=== PATIENT | female | born 1950 | race Caucasian/White ===

== ENCOUNTER 2018-08-03 09:28 | Observation (INO) ==
--- NOTE | 2018-08-03 09:56 | Diag Imaging Result Doc PS360 ---
EXAM: CHEST-PORTABLE HISTORY: AMS TECHNIQUE: Chest single view COMPARISON: 11/15/2013 FINDINGS: The lungs are hyperexpanded. The heart is not enlarged. The vessels are not distended. There are no infiltrates. No effusion identified. There has been surgery to the lower neck. IMPRESSION: Negative exam. Electronically signed by Kyrie Johnson 08/03/2018 9:54 AM
--- NOTE | 2018-08-03 10:04 | PROVIDER DOCUMENTATION ---
HPI-Neurological Disorder - General Chief Complaint: Altered Mental Status Stated Complaint: DIZZY Time Seen by Provider: 08/03/18 09:50 Source: patient, family () Allergies/Adverse Reactions: Patient Allergies Allergy/AdvReac Type Severity Reaction Status Date / Time morphine Allergy Intermediate NAUSEA/VOMI Verified 08/03/18 10:23 TING Home Medications: Home Medication List Medication Instructions Recorded Confirmed Last Taken Type Alprazolam [Xanax] 0.5 mg PO QHS 10/25/11 08/03/18 02/02/18 History Cyclobenzaprine [Flexeril] 10 mg PO BID PRN 10/25/11 08/03/18 02/02/18 History Levothyroxine [Synthroid] 100 microgm PO DAILY 10/25/11 08/03/18 02/02/18 History Albuterol Sulfate Inhaler 2 puff INH [id number] 02/02/18 08/03/18 02/02/18 History [Ventolin Hfa] Aspirin [Aspir-Low] 81 mg PO QAM 02/02/18 08/03/18 02/02/18 History Umeclidinium [place] Inhaler 1 puff INH DAILY 02/02/18 08/03/18 02/02/18 History [Incruse Ellipta] Hydrocodone/APAP 10 mg/325 mg 1 each PO Q4H PRN PRN 15 Days #30 02/05/18 08/03/18 Unknown Rx [[place]-10] tablet Amlodipine [Norvasc] 1 tab PO DAILY 08/03/18 08/03/18 Unknown History Cholecalciferol (Vitamin D3) 1 cap PO DAILY 08/03/18 08/03/18 Unknown History [Vitamin D3] Diphenoxylate/Atropine [Lomotil] 1 tab PO Q6H PRN 08/03/18 08/03/18 Unknown History Irbesartan [Avapro] 1 tab PO DAILY 08/03/18 08/03/18 Unknown History Lansoprazole 1 cap PO DAILY 08/03/18 08/03/18 Unknown History Metoprolol Succinate 0.5 - 1 tab PO BID 08/03/18 08/03/18 Unknown History Nitroglycerin Sl [Nitroglycerin] 1 tab PO PRN PRN 08/03/18 08/03/18 Unknown History Promethazine [Phenergan] 1 tab PO Q4H PRN 08/03/18 08/03/18 Unknown History - History of Present Illness-Neuro Nature of Presenting Problem: Patient is a 68yo F, accompanied by , who presents for dizziness. Patient's reports when she came home from work yesterday, she began "talking off the wall" and "her short term memory is gone." Patient denies any complaints other than mild dizziness, that has improved since yesterday. Reports the dizziness does not change with positions and she denies nausea/vomiting. Patient's reports patient is not acting like herself and "can't remember where she put her keys." Patient denies any fever/chills, visual changes, headache, head injury, weakness, CP, or SOB. Patient is alert to person and place, unsure of the year or day of the week, but reports it is July and Harvinder is the president. Patient's reports this is not normal for her. CHELSY. EOMI. A&Ox3. Headache Location: reports: other (no headache) Severity: reports: moderate Onset/Duration: reports: last night Timing: reports: still present Context: reports: other (patient's reports short term memory loss) Character of Altered Mental Status: reports: disoriented, confused, trouble concentrating Any recent trauma/injury?: reports: none Character of Deficits: denies: new weakness, altered sensation, vision problem/glaucoma, impaired speech, impaired swallowing, decreased ability to stand, decreased ability to walk, falling New weakness or altered sensation location:: reports: none Cognitive Baseline: alert but disoriented (disoriented to time) Gait Baseline: walks without assistance Associated Symptoms: reports: dizziness, confusion. denies: headache, decreased ability to walk or stand, fainting, chest pain, fever/chills, loss of consciousness, nausea, numbness in legs/feet, paresthesia, diaphoretic, slurred speech, trouble walking, vomiting, vision changes, weakness Similar Symptoms Previously?: No Recently seen or treated by another doctor?: No Review of Systems - Adult - REVIEW OF SYSTEMS - ADULT ROS:: ROS per family (per patient and ) Constitutional: denies: chills, fever Eyes: denies: decreased vision, blurred vision, double vision Ears, Nose, Mouth & Throat: denies: ear pain, sinus problem Cardiovascular: denies: chest pain, palpitations Respiratory: denies: cough, shortness of breath, wheezing Gastrointestinal: denies: abdominal pain, diarrhea, nausea, vomiting Genitourinary: reports: no symptoms reported Musculoskeletal: denies: back pain, muscle weakness, neck pain Integumentary: reports: no symptoms reported Neurological: reports: see HPI, dizziness/vertigo. denies: headache/migraines, loss of balance, numbness, paresthesia, slurred speech, syncope, tremors Psychiatric: reports: no symptoms reported Endocrine: reports: no symptoms reported Past History - Adult - PAST MEDICAL HISTORY-ADULT Review of Records: reports: Nursing Assessment Review, Medications Reviewed Major Childhood Illnesses: reports: denies history Cardiovascular: reports: blood clots, HTN Respiratory: reports: asthma, COPD Gastrointestinal: reports: GERD, other (gastric bypass [id number]) Obstetrical/Gynecological: reports: denies history Genitourinary: reports: denies history Musculoskeletal: reports: denies history Neurological: reports: denies history Endocrine/Immune: reports: denies history Other Conditions: reports: denies history - PRIOR SURGERIES/PROCEDURES Surgical/Procedure History: reports: hysterectomy, gastric bypass - IMMUNIZATION STATUS Childhood Immunizations: See Nurse Assessment Flu Vaccine: See Nurse Assessment - FAMILY HISTORY Family History: reviewed, not pertinent - SOCIAL HISTORY Smoking: cigarettes Provider spent 3-5 mins advising pt. on dangers of tobacco.: Discussed manners to quit use, and f/u contacts for add'l counseling. Substance Use: denies Alcohol Use Frequency: never Living Situation: family Physical Exam- Neurological - Physical Exam-Neuro Initial Vital Signs Reviewed: Yes General Appearance: appears well, alert, no apparent distress. negative: lethargic, slow to respond, obtunded, combative Eye Exam: bilateral eye: normal inspection, PERRL, EOMI HENMT: normocephalic/atraumatic, moist mucous membranes Head Injury: no evidence of injury Neck: non-tender, full range of motion, supple, normal inspection Respiratory: chest non-tender, lungs clear, normal breath sounds, no pleuratic chest pain, no respiratory distress, no accessory muscle use Cardiovascular: regular rate, rhythm, no gallop Abdominal Exam: normal bowel sounds, non tender, soft Extremity: normal range of motion, non-tender, normal gait, normal inspection, pelvis stable public relations senior associate Exam: normal hearing, normal speech, PERRL. negative: abnormal speech, facial asymmetry, facial droop, facial paresthesias, facial weakness, gaze palsy Coordination/Gait: normal finger to nose, normal gait Motor/Sensory: no motor deficit, no sensory deficit, no pronator drift. negative: pronator drift (R), pronator drift (L), sensory deficit, weak motor strength RUE, weak motor strength LUE, weak motor strength RLE, weak motor strength LLE Neurologic: grossly normal, no motor/sensory deficits. negative: abnormal gait, aphasia, EOM palsy, facial droop, focal weakness, motor weakness, sensory deficit Integumentary: normal color, warm/dry Psych/Mental Status: normal mood/affect, normal thought content, normal thought process, oriented x 3 - Glascow Coma Scale Best Eye Response: (4) open spontaneously Best Verbal Response: (5) oriented (oriented to person and place, mildly disoriented to time (however knows it is July and Harvinder is President, confused on year)) Best Motor Response: (6) obeys commands Total Glascow Score: 15 Progress - PLAN OF CARE/RESULTS Progress/Plan/Lab Results: Vital Signs - 8 hr 08/03/18 09:31 Temperature 98.0 F Pulse Rate 70 Respiratory Rate 16 Blood Pressure 157/61 O2 Sat by Pulse Oximetry 97 Laboratory Results - last 24 hr 08/03/18 08/03/18 08/03/18 10:35 10:35 10:35 WBC 6.61 RBC 4.98 Hgb 15.3 Hct 47.1 H MCV 94.6 MCH 30.7 MCHC 32.5 L RDW Std Deviation 15.0 H Plt Count 384 MPV 9.6 Immature Gran % (Auto) 0.0 Neut % (Auto) 60.2 Lymph % (Auto) 24.4 [place] % (Auto) 12.4 H Eos % (Auto) 2.1 Baso % (Auto) 0.9 H Immature Gran # (Auto) 0.00 Neut # (Auto) 3.98 Lymph # (Auto) 1.61 [place] # (Auto) 0.82 H Eos # (Auto) 0.14 Baso # (Auto) 0.06 PT 12.6 INR 0.87 PTT (Actin FS) 24.1 Sodium 145 Potassium 5.1 Chloride 106 Carbon Dioxide 31 Anion Gap 8 BUN 12 Creatinine 0.9 Estimated GFR/1.73 m2 > 60 BUN/Creatinine Ratio 13 Glucose 99 Calculated Osmolality 288 Calcium 9.6 Total Bilirubin 0.70 AST 22 ALT 15 Alkaline Phosphatase 124 H Creatine Kinase 67 Troponin T Total Protein 6.5 Albumin 3.9 Globulin 2.6 Albumin/Globulin Ratio 1.5 Urine Source Urine Color Urine Turbidity Urine pH Ur Specific [place] Urine Protein Ur Glucose (Stick) Ur Ketones (Stick) Urine Blood Urine Nitrite Urine Bilirubin Urobilinogen Dipstick Urine Leukocytes Urine WBC (Auto) Urine RBC (Auto) U Epithel Cells (Auto) Urine Bacteria (Auto) Urine Opiates Screen Ur Oxycodone Screen Ur Methadone, Qual Ur Barbiturates Screen Ur Phencyclidine Scrn Ur Amphetamines Screen U Benzodiazepines Scrn Urine Cocaine Screen U Cannabinoids Screen 08/03/18 08/03/18 08/03/18 10:35 11:50 11:50 WBC RBC Hgb Hct MCV MCH MCHC RDW Std Deviation Plt Count MPV Immature Gran % (Auto) Neut % (Auto) Lymph % (Auto) [place] % (Auto) Eos % (Auto) Baso % (Auto) Immature Gran # (Auto) Neut # (Auto) Lymph # (Auto) [place] # (Auto) Eos # (Auto) Baso # (Auto) PT INR PTT (Actin FS) Sodium Potassium Chloride Carbon Dioxide Anion Gap BUN Creatinine Estimated GFR/1.73 m2 BUN/Creatinine Ratio Glucose Calculated Osmolality Calcium Total Bilirubin AST ALT Alkaline Phosphatase Creatine Kinase Troponin T < 0.010 Total Protein Albumin Globulin Albumin/Globulin Ratio Urine Source CLEAN CATCH Urine Color YELLOW Urine Turbidity CLEAR Urine pH 6.0 Ur Specific [place] 1.015 Urine Protein TRACE A Ur Glucose (Stick) NEGATIVE Ur Ketones (Stick) NEGATIVE Urine Blood NEGATIVE Urine Nitrite NEGATIVE Urine Bilirubin NEGATIVE Urobilinogen Dipstick 2 A Urine Leukocytes MODERATE A Urine WBC (Auto) <10 Urine RBC (Auto) <10 U Epithel Cells (Auto) <10 Urine Bacteria (Auto) NEGATIVE Urine Opiates Screen NONE DETECTED Ur Oxycodone Screen NONE DETECTED Ur Methadone, Qual NONE DETECTED Ur Barbiturates Screen NONE DETECTED Ur Phencyclidine Scrn NONE DETECTED Ur Amphetamines Screen NONE DETECTED U Benzodiazepines Scrn NONE DETECTED Urine Cocaine Screen NONE DETECTED U Cannabinoids Screen NONE DETECTED Orders Category Date Time Status Cardiac Monitoring DIRECTED Care 08/03/18 09:38 Active Finger Stick Blood Sugar (ED) DIRECTED Care 08/03/18 09:38 Active Oxygen Therapy- ED Nursing DIRECTED Care 08/03/18 09:38 Active Saline Loc NOW Care 08/03/18 09:38 Active CHEST-PORTABLE [RAD] Stat Exams 08/03/18 09:[address] HEAD W/O CONTRAST [CT] Stat Exams 08/03/18 09:39 Completed CBC WITH ELECTRONIC DIFF [HEME] Stat Lab 08/03/18 10:35 Completed CK PROFILE [SP CHEM] Stat Lab 08/03/18 10:35 Completed COMPREHENSIVE METABOLIC PANEL [CHEM] Stat Lab 08/03/18 10:35 Completed PROTIME WITH INR [COAG] Stat Lab 08/03/18 10:35 Completed PTT [COAG] Stat Lab 08/03/18 10:35 Completed TROPONIN T Stat Lab 08/03/18 10:35 Completed URINALYSIS [URINALYSIS] Stat Lab 08/03/18 11:50 Completed URINE DRUG SCREEN Stat Lab 08/03/18 11:50 Completed CefTRIAXONE [Rocephin] 1 gm Med 08/03/18 12:15 Active 0.9% Sodium Chloride Inj [Ns] 50 ml IV NOW Altered Mental Status Stat Oth 08/03/18 09:37 Ordered EKG [EKG] Stat Ther 08/03/18 09:38 Draft Result Diagrams: 08/03/18 10:35 08/03/18 10:35 - EKG 1 Time of EKG reading by physician:: 09:39 EKG Read and Signed by:: Claudia Davis EKG Interpretation (*Must complete 3 of following elements*): Normal Rate: 80 Rhythm: NSR Macy: normal QRS: normal [place] Interval: normal ST Wave: normal - XRAY 1 XRAY: Bilateral XRAY Study: Chest Impression: See EMR Report ([facility] [address], [address], [place] [id number] Department of Imaging Patient: MONICA NASH Date: 08/03/18MR#: [id number] : 1950DM Status: PRE ERAcct#: [id number] Age/Sex: 68/FRoom/Bed: Loc: ED Ordering Physician: Claudia Davis MD Family Physician: Jamar Mills MD Reason for Procedure: AMS Signed EXAM: CHEST-PORTABLE HISTORY: AMS TECHNIQUE: Chest single view COMPARISON: 11/15/2013 FINDINGS: The lungs are hyperexpanded. The heart is not enlarged. The vessels are not distended. There are no infiltrates. No effusion identified. There has been surgery to the lower neck. IMPRESSION: Negative exam. Electronically signed by Kyrie Johnson 08/03/2018 9:54 AM 08/03/18 0954 Interpreting Physician: Kyrie Johnson MD Dictated Date/Time: 08/03/18 0953 cc: Claudia Davis MD; Jmaar Mills MD) - CT/MRI 1 CT Study: Head Impression: See EMR Report ([facility] [address] [facility], [address], [place] [address] Department of Imaging Patient: MONICA NASH Date: 08/03/18#: [id number] : 1950DM Status: [facility] ERAt#: [id number] Age/Sex: 68/FRoom/Bed: Loc: ED Ordering Physician: Claudia Davis MD Family Physician: Jamar Mills MD Reason for Procedure: AMS ___ Signed EXAM: CT HEAD W/O CONTRAST - 08/03/2018 HISTORY: AMS TECHNIQUE: CT head without contrast COMPARISON: None. FINDINGS: There is no evidence of intracranial hemorrhage, mass effect, midline shift, or hydrocephalus. There is no evidence of infarct, although acute infarcts may not be immediately visible. There is no evidence of skull fracture. Visualized portions of paranasal sinuses and mastoid air cells appear clear. IMPRESSION: No visible acute intracranial abnormality. No hemorrhage or mass effect. This exam was performed using automated exposure control, adjustment of mA or kV ac cording to patient size, and/or use of iterative reconstruction technique. Electronically signed by Fabian Uriostegui 08/03/2018 10:26 AM 08/03/18 1026 Interpreting Physician: Fabian Uriostegui MD Dictated Date/Time: 08/03/18 1022 cc: Claudia Davis MD; Jamar Mills MD) - CONSULTS/PCP/HOSPITALIST Notification #1 *Consult/PCP/Hospitalist*: SALVADOR Cruz Hospitalist Time Discussed: 12:27 Reason/Comments: AMS, possible TIA Consult Disposition: Admit Departure - Departure Date of Disposition Decision: 08/03/18 Time of Disposition Decision: 12:27 DIAGNOSIS: Urine leukocytes Altered mental status Qualifiers: Altered mental status type: disorientation Qualified Code(s): R41.0 - Disorientation, unspecified Disposition: ADMITTED INPATIENT 09 Certified Medical Emergency: Emergent Condition: Stable Referrals and Follow-Ups: Jamar Mills MD [Primary Care Provider] - - Critical Care Note This patient required my direct & personal management of CC.: No Attestation - Physician/ ELIAZAR Attestation Patient care was provided by Advanced Practice Provider:: Yes Advanced Practice Provider:: Kathryn Hale Advanced Practice Provider documentation review:: The Mid-level provider documentation, treatment plan and medical decision making was reviewed by the physician who agrees with all treatment and medical decision making by the [facility]. The physician spent face to face time with patient:: No Advanced Practice Provider documentation review:: Supervising physician onsite and consulted in the evaluation and care of this patient. The physician did not have a face to face encounter with the patient. - NIH Stroke Scale NIH Type: Initial Evaluation Level of Consciousness: 0-Alert LOC Questions (ask month and age): 0-Answers Both Correctly (patient alert to month, but not for day or year) LOC Commands (ask to open & close eyes;make a fist, let go): 0-Obeys Both Correctly Best Gaze (horizontal eye movement): 0-Normal Visual (use finger movement, counting or visual threat): 0-No Visual Loss Facial Palsy (show teeth or raise eyebrows & close eyes tght: 0-Symmetrical Movement Motor Function-left arm: 0-Normal Motor Function-right arm: 0-Normal Motor Function-left le-Normal Motor Function-right le-Normal Limb Ataxia(bgaoum-wrvg-[id number], or heel to riggs): 0-No Ataxia Sensory(pin prick to face,arms,trunk,legs-compare side/side): 0-No Ataxia Best Language(name item/read sentence.Ex-Down to Earth): 0-No Aphasia Dysarthria(Pt read words or say words Ex.Mama,Tip-Top,Thanks: 0-Normal Articulation Extinction and Inattention: 0-Normal NIH Total Score: 0 Modified Ashwini Score Criteria: 0-no symptoms
--- NOTE | 2018-08-03 10:29 | Diag Imaging Result Doc PS360 ---
EXAM: CT HEAD W/O CONTRAST - 08/03/2018 HISTORY: AMS TECHNIQUE: CT head without contrast COMPARISON: None. FINDINGS: There is no evidence of intracranial hemorrhage, mass effect, midline shift, or hydrocephalus. There is no evidence of infarct, although acute infarcts may not be immediately visible. There is no evidence of skull fracture. Visualized portions of paranasal sinuses and mastoid air cells appear clear. IMPRESSION: No visible acute intracranial abnormality. No hemorrhage or mass effect. This exam was performed using automated exposure control, adjustment of mA or kV according to patient size, and/or use of iterative reconstruction technique. Electronically signed by Fabian Uriostegui 08/03/2018 10:26 AM
[2018-08-03 10:53] LABS: BASO# 0.06 X1000 (0.0-0.2); BASO% 0.9 % (0.0-0.8); EOS# 0.14 X1000 (0.0-0.7); EOS% 2.1 % (0.0-10.0); HEMATOCRIT 47.1 % (37.0-47.0); HEMOGLOBIN 15.3 g/dL (12.0-16.0); LYMPH# 1.61 X1000 (1.2-3.4); LYMPH% 24.4 % (20.5-51.1); MCH 30.7 PG (27-31); MCHC 32.5 g/dL (33-37); MCV 94.6 FL (81-99); MONO# 0.82 X1000 (0.11-0.59); MONO% 12.4 % (1.7-9.3); MPV 9.6 FL (7.4-10.4); NEUT# 3.98 X1000 (1.4-6.5); NEUT% 60.2 % (42.2-75.2); PLT 384 X1000 (130-400); RBC 4.98 XMIL (4.2-5.4); WBC 6.61 X1000 (4.8-10.8)
[2018-08-03 11:06] LABS: INR 0.87; PROTIME 12.6 Seconds (11.0-16.0)
--- NOTE | 2018-08-03 11:06 | EKG Report ---
Test Performed on : 08/03/2018 09:39:33 AM Test Reason : AMS Blood Pressure : / mmHG Vent. Rate : 080 BPM Atrial Rate : 080 BPM P-R Int : 154 ms QRS Dur : 076 ms QT Int : 356 ms P-R-T Axes : 058 034 066 degrees QTc Int : 410 ms Normal sinus rhythm. Normal ECG No previous ECGs available Unconfirmed Result
[2018-08-03 11:07] LABS: PTT 24.1 Seconds (22.3-41.8)
[2018-08-03 11:17] LABS: AGAP 8; ALB/GLOB RATIO 1.5; ALBUMIN 3.9 g/dL (3.5-5.0); ALKALINE PHOSPHATASE 124 U/L (32-104); BUN 12 mg/dL (8-22); CALCIUM 9.6 mg/dL (8.8-10.2); CHLORIDE 106 mmol/L (98-107); CK PROFILE 67 U/L (24-173); COSMO 288; CREATININE 0.9 mg/dL (0.5-0.9); ESTIMATED GFR > 60; GLUCOSE 99 mg/dL (70-104); GOT 22 U/L (10-30); GPT 15 U/L (10-36); POTASSIUM 5.1 mmol/L (3.5-5.1); SODIUM 145 mmol/L (136-145); TCO2 31 mmol/L (25-35); TOTAL PROTEIN 6.5 g/dL (6.3-8.3)
[2018-08-03 12:00] LABS: URINE SOURCE CLEAN CATCH
[2018-08-03 12:10] LABS: BILIRUBIN URINE NEGATIVE (NEGATIVE); BLOOD URINE NEGATIVE (NEGATIVE); COLOR YELLOW; GLUCOSE URINE NEGATIVE (NEGATIVE); KETONE URINE NEGATIVE (NEGATIVE); LEUKOCYTES URINE MODERATE (NEGATIVE); NITRITE URINE NEGATIVE (NEGATIVE); PROTEIN URINE TRACE mg/dL (NEGATIVE); SP GRAVITY URINE 1.015; TURBIDITY URINE CLEAR (CLEAR); UROBILINOGEN URINE 2 mg/dL (NORMAL)
[2018-08-03 12:12] LABS: UR EPITHELIAL CELLS <10 /HPF (<10); URINE BACTERIA NEGATIVE /HPF; URINE RBC <10 /HPF (<10); URINE WBC <10 /HPF (<10)
[2018-08-03 12:14] LABS: UR AMPHETAMINES QUAL NONE DETECTED (NONE DETECT); UR BARBITUATES QUAL NONE DETECTED (NONE DETECT); UR BENZODIAZEPIN QUAL NONE DETECTED (NONE DETECT); UR CANNABINOIDS QUAL NONE DETECTED (NONE DETECT); UR COCAINE QUAL NONE DETECTED (NONE DETECT); UR METHADONE QUAL NONE DETECTED (NONE DETECT); UR OPIATES QUAL NONE DETECTED (NONE DETECT); UR OXYCODONE QUAL NONE DETECTED (NONE DETECT); UR PCP QUAL NONE DETECTED (NONE DETECT)
[2018-08-03] MEDS ORDERED: ROCEPHIN 1 GM in NS 50 ML IV ONE (12:15)
[2018-08-03] MEDS ORDERED: PHENERGAN PR PRN (13:42)
[2018-08-03] MEDS ORDERED: LOMOTIL PO PRN (13:42)
[2018-08-03] MEDS ORDERED: FLEXERIL PO PRN (13:42)
[2018-08-03] MEDS ORDERED: NITROGLYCERIN SL PRN (13:42)
[2018-08-03] MEDS ORDERED: NICODERM PATCH TD ONE (14:56)
[2018-08-03] MEDS: LOVENOX SUBQ SCH (15:16)
[2018-08-03] MEDS: NS 1,000 ML IV SCH (15:17)
[2018-08-03] MEDS: VENTOLIN HFA INH SCH ×2 (16:15→21:50)
--- NOTE | 2018-08-03 19:21 | HISTORY AND PHYSICAL ---
PRIMARY CARE PHYSICIAN: Dr. Jamar Mills. CHIEF COMPLAINT: Altered mental status. HISTORY OF PRESENT ILLNESS: Ms. Doty is a 68-year-old, female who presents to the ER with chief complaint of altered mental state status. The family states that yesterday evening about 4 p.m. 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 This persisted throughout the night. Mrs Doty did go to bed. When she woke up this morning and she has was still confused. Her son who is a nurse at [employer] called her and talked her into coming to the ER today. Upon arrival to the ER, Mrs. Weller did have some toward short-term memory loss. However, at this present time, she is awake, alert, and oriented. Speech is clear. She states she does not remember being confused. LABORATORY FINDINGS: In the ER, urine shows a moderate amount of leukocytes and a trace amount of protein. Toxicology was negative. CT of the head shows no visible acute intracranial abnormality. No hemorrhage or mass effect. When asked the patient if she is having any difficulty urinating, the patient does agree that she has been having some dysuria and some burning when she urinates. The patient states that she does not drink very much water and that she has lots of diarrhea, but the diarrhea is not new for her since her bowel obstruction last year. The patient denies any pain at present time. The patient states that she does have some nausea at times but not having any nausea at the present time. Denies any chest pain. Denies any other symptoms. PAST MEDICAL HISTORY: Hypertension, GERD, smoker, hypothyroidism, asthma, COPD. PAST SURGICAL HISTORY: Gastric bypass, hernia repair, cholecystectomy, 2 back surgeries, hysterectomy. The patient's hernia repair was from a bowel obstruction last year. FAMILY HISTORY: Mother from lung cancer. Father from leukemia. 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 She does admit to smoking 1 pack of cigarettes per day. She denies any alcohol or drug abuse. ALLERGIES: Morphine. MEDICATIONS: Albuterol sulfate inhaler 2 puffs inhaled 4 times a day, alprazolam 0.5 mg p.o. at bedtime, amlodipine 5 mg p.o. daily, aspirin 81 mg p.o. q.a.m., vitamin D3 1 capsule p.o. daily, cyclobenzaprine 10 mg p.o. b.i.d., Lomotil 1 tab p.o. q.6 hours, [place] 10 one tablet p.o. q.4 hours p.r.n., Avapro 1 tablet 300 mg p.o. daily, lansoprazole 30 mg 1 tablet p.o. daily, levothyroxine 700 mg p.o. daily, metoprolol 1 tablet p.o. b.i.d., nitroglycerin sublingual 0.4 mg 1 tablet p.o. p.r.n., promethazine 25 mg 1 tablet p.o. q.4 hours. [*]M bromide inhaler 1 puff inhaled daily. REVIEW OF SYSTEMS: A 12 point review of systems was performed and are negative except what is stated above in HPI. PHYSICAL EXAM: VITAL SIGNS: Temperature 98.0 degrees, pulse rate 70, respiratory rate 16, blood pressure 157/61, O2 saturation 97% on room air. Weight 136, height 5 feet 1 inch. GENERAL: This is a well-nourished, well-developed 68-year-old female in no acute distress. HEENT: Atraumatic, normocephalic. Pupils equal, round, react to light and accommodation. Mucous membranes are moist with no dentition. NECK: Supple. No lymphadenopathy. Trachea is midline. No JVD. CV: Regular rate and rhythm. No murmurs, gallops, or rubs appreciated. RESPIRATORY: Lung sounds are clear. Equal chest excursion. Respirations are nonlabored. No accessory muscle usage. GI: Abdomen is soft, nontender with bowel sounds present x4. Nondistended. NEUROLOGIC: Awake, alert, and oriented x4. Cranial nerves intact. Able to follow all commands. No deficits noted. Speech is clear. MUSCULOSKELETAL: Full distal strength noted. No abnormalities. No deformities. EXTREMITIES: No clubbing, no cyanosis, no edema. DP and PT pulses are present and intact. SKIN: Warm and dry, intact. No rashes. No bruises. ASSESSMENT: 1. Urinary tract infection. 2. Altered mental status, possibly due to urinary tract infection. 3. Transient ischemic attack. 4. Hypertension. 5. Tobacco dependence. PLAN: We will admit this patient to the medical floor. We will start this patient on IV fluid hydration. We will start this patient on Rocephin. The patient already received a dose in the emergency room. We will rule out a transient ischemic attack. We will perform carotid Doppler ultrasound, repeat chest x-ray in the morning. We will resume all this patient's home medications. Patient states that she did not have any changes in her medications and patient states that she did take all her medications as prescribed, so we will resume all of these. We will repeat all her labs in the morning. We will admit this patient for observation and place this patient on monitoring coordinator. Dictated by SALVADOR Graves for Miguel Cowart MD cc: Miguel Cowart MD
--- NOTE | 2018-08-03 19:27 | HISTORY AND PHYSICAL ---
ADDENDUM: I have seen and examined Ms. Doyt today. She has presented mainly because her family members are concerned that she has been extremely confused, not knowing what she is doing. Upon presenting to the emergency department, her vitals seem to be all stable. She looks slightly dehydrated. She also did complain of some urinary symptoms. I have reviewed her current imaging studies including a chest x-ray which is negative. A head CT scan which does not show any acute intracranial pathology. Her laboratory data seems to be all within normal parameters except hemoglobin of 15.3, which might indicate hemoconcentration. Her bicarb is 31, which is slightly elevated which could also indicate intravascular depletion. Otherwise, lab work seems to be unremarkable. Her physical exam is also completely unremarkable except for mild dehydration. EKG shows normal sinus rhythm with no ST-segment abnormality or T-waves inversion. ASSESSMENT: 1. Altered mental status associated with acute confusional state, most likely started associated with acute confusional state with CT scan unremarkable. There is concern for a transient ischemic attack. I do not see any focal neurological deficit. A head CT scan was normal. We will order an MRI for completion of the studies. I think this is probably more global encephalopathy which either toxin medications or infectious etiology needs to be ruled out. 2. Clinical volume depletion. Patient will be gently hydrated overnight. 3. Dysuric symptoms, questionable for urinary tract infection. The patient has been started on IV antibiotics. Urine cultures have been ordered and will be following up with further or with those results. Please refer to the details of the H P which has been dictated by the SPLITTER TENDER in the chart. cc: Miguel Cowart MD
[2018-08-03] MEDS ORDERED: XANAX PO SCH (21:00)
[2018-08-03] MEDS: NORCO-10 PO PRN (21:43)
[2018-08-03] MEDS: TOPROL XL PO SCH (23:04)
[2018-08-04] MEDS: VENTOLIN HFA INH SCH ×2 (03:13→08:02)
[2018-08-04] MEDS: NORCO-10 PO PRN ×2 (04:14→11:24)
--- NOTE | 2018-08-04 06:39 | Diag Imaging Result Doc PS360 ---
CHEST-PORTABLE - 08/04/2018 INDICATION: dyspnea COMPARISON: 08/03/2018 FINDINGS: Stable COPD. No infiltrates or edema. No pneumothorax or pleural effusion. Heart size is normal. IMPRESSION: COPD. Electronically signed by El Simpson 08/04/2018 6:37 AM
[2018-08-04] MEDS ORDERED: PREVACID SOLUTAB PO SCH (07:00)
[2018-08-04] MEDS ORDERED: SYNTHROID PO SCH (07:00)
[2018-08-04 07:11] LABS: HEMATOCRIT 42.5 % (37.0-47.0); HEMOGLOBIN 13.4 g/dL (12.0-16.0); LYMPH% 23.8 % (20.5-51.1); MCH 30.3 PG (27-31); MCHC 31.5 g/dL (33-37); MCV 96.2 FL (81-99); MONO% 14.4 % (1.7-9.3); MPV 9.6 FL (7.4-10.4); NEUT% 58.2 % (42.2-75.2); PLT 334 X1000 (130-400); RBC 4.42 XMIL (4.2-5.4); RDW 15.2 % (11.5-14.5); WBC 5.84 X1000 (4.8-10.8)
[2018-08-04 07:12] LABS: BASO# 0.06 X1000 (0.0-0.2); EOS# 0.15 X1000 (0.0-0.7); EOS% 2.6 % (0.0-10.0); LYMPH# 1.39 X1000 (1.2-3.4); MONO# 0.84 X1000 (0.11-0.59)
[2018-08-04 07:56] LABS: AGAP 11; BUN 13 mg/dL (8-22); CHLORIDE 106 mmol/L (98-107); GLUCOSE 92 mg/dL (70-104); POTASSIUM 3.4 mmol/L (3.5-5.1); SODIUM 143 mmol/L (136-145); TCO2 26 mmol/L (25-35)
[2018-08-04 07:57] LABS: CALCIUM 8.3 mg/dL (8.8-10.2); COSMO 285; CREATININE 0.7 mg/dL (0.5-0.9); ESTIMATED GFR > 60
[2018-08-04] MEDS ORDERED: INCRUSE ELLIPTA INH SCH (09:00)
[2018-08-04] MEDS ORDERED: ASPIRIN EC PO SCH (09:00)
[2018-08-04] MEDS ORDERED: VITAMIN D PO SCH (09:00)
[2018-08-04] MEDS ORDERED: AVAPRO PO SCH (09:00)
[2018-08-04] MEDS ORDERED: NORVASC PO SCH (09:00)
[2018-08-04] MEDS ORDERED: ZOFRAN IV PRN (09:38)
--- NOTE | 2018-08-04 09:51 | Diag Imaging Result Doc PS360 ---
EXAM: MRI BRAIN W/WO CONTRAST HISTORY: stroke vrs TIA TECHNIQUE: MRI brain with and without intravenous contrast. Axial, sagittal, and coronal images obtained in multiple sequences. These are followed the post contrasted axial and coronal images. COMPARISON: Recent CT head FINDINGS: No recent infarct. There are minimal microvascular ischemic changes. No hydrocephalus. No mass or midline shift. No enhancing lesion on the post contrasted images. No epidural or subdural fluid collection. Normal orbits. No sinus opacification or air-fluid levels. IMPRESSION: Minimal microvascular ischemic changes, but no recent infarct. Electronically signed by Kyrie Johnson 08/04/2018 9:48 AM
--- NOTE | 2018-08-04 09:55 | Diag Imaging Result Doc PS360 ---
EXAM: MRA BRAIN W/O CONTRAST HISTORY: stroke vs TIA TECHNIQUE: MR angiography of the brain with MIP images COMPARISON: None. FINDINGS: MR angiography of the brain performed. There is normal flow in the distal internal carotid arteries. Normal flow in the anterior and middle cerebral arteries. Normal flow in the distal vertebral arteries and basilar artery. Normal flow in the posterior cerebral arteries. There is a right posterior communicating artery which supplies flow to the right posterior cerebral artery. This is a normal variant. No occlusion in the [place]. No aneurysm. IMPRESSION: Normal MR angiography of the brain. Electronically signed by Kyrie Johnson 08/04/2018 9:53 AM
--- NOTE | 2018-08-04 09:56 | Diag Imaging Result Doc PS360 ---
EXAM: MRA NECK W/CONT HISTORY: Stroke vs TIA TECHNIQUE: MR angiography of the neck with contrast. MIP images obtained. COMPARISON: None. FINDINGS: There is normal flow in the right common carotid artery. No occlusion or stenosis. Normal flow in the right internal carotid artery. No occlusion or stenosis. Normal flow in the left common carotid artery. No occlusion or stenosis. Normal flow in the left internal carotid artery. No occlusion or stenosis. Normal flow within each vertebral artery. IMPRESSION: Normal MR angiography of the neck. Electronically signed by Kyrie Johnson 08/04/2018 9:54 AM
[2018-08-04] MEDS: NS 1,000 ML IV SCH (10:29)
[2018-08-04] MEDS: TOPROL XL PO SCH (11:24)
[2018-08-04] MEDS ORDERED: ROCEPHIN 1 GM in NS 50 ML IV SCH (14:00)
[2018-08-04] MEDS: LOVENOX SUBQ SCH (14:55)
[2018-08-04 15:03] VITALS: BP 142/69
--- NOTE | 2018-08-04 15:39 | PROGRESS NOTE ---
DATE: 08/04/2018 SUBJECTIVE: This morning Ms. Doty is referred to be doing fairly okay. She complained of some nauseation and diarrhea. OBJECTIVE: Vital signs: Blood pressure is 152/70, pulse of 76, respiration is 18, temperature is 97.6 degrees. Patient is saturating 98% on room air. General: Mr. Doty is a 68-year-old female. She is in bed, no distress. HEENT: Mucosa is pink and moist. Anicteric. Acyanotic. Neck: Supple. Chest: Good air entry bilaterally. There was no crepitations, no rhonchi. Cardiovascular: Regular rate and rhythm. Abdomen: Soft. Extremities: No pedal edema. GRAD INTERN: Patient is awake, alert, and oriented. There is no focal neurological deficit. LABORATORY DATA: CBC is reviewed, completely normal. Chemistry is also reviewed. Potassium is down to 3.4. Lipase is normal. ASSESSMENT: 1. Acute confusional state, which has improved. We think this is probably related to psychotropic medications. 2. Chronic pain syndrome. The patient is on a lot of pain medications. She has been advised the risk of polypharmacy, and prescription drug misuse. 3. Chronic cognitive decline likely Alzheimer's versus age-related cognitive impairment. 4. Clinical volume depletion, improved. 5. Dysuria resolved with a negative culture. We will discontinue the antibiotics. cc: Miguel Cowart MD
--- NOTE | 2018-08-05 09:32 | Carotid Study ---
DATE: 08/03/2018 PROCEDURE: Carotid duplex imaging. REFERRING PHYSICIAN: SALVADOR Graves. INTERPRETING PHYSICIAN: Zi Lutz MD. TECH: [place]. INDICATIONS: TIA. OBSERVED DATA RIGHT LEFT Brachial Blood Pressure Carotid Pulse Bruits: Carotid/Sub DIAGRAM OF ULTRASOUND IMAGING R L RIGHT INT EXT INT EXT LEFT Chad (cm/s) Chad (cm/s) Subclavian 75/0 Subclavian 55/0 CCA Proximal 86/16 CCA Proximal 72/15 CCA Distal 60/17 CCA Distal 69/21 Bulb 48/12 Bulb 49/15 ICA Proximal 58/20 ICA Proximal 42/11 ICA Mid 76/25 ICA Mid 92/26 ICA Distal 101/30 ICA Distal 63/12 ECA 60/9 ECA 79/7 Vertebral 40/8 Vertebral 50/14 ICA/CCA Ratio 1.2 ICA/CCA Ratio 1.3 % Stenosis 0-39% % Stenosis 0-39% FINDINGS: There is mild calcific plaque in the carotid bulbs and internal carotid arteries bilaterally. There is no turbulent flow or significant stenoses. There is antegrade vertebral flow bilaterally. PHYSICIAN INTERPRETATION: Mild plaque disease as described above, which is not hemodynamically significant. cc: Zi Lutz MD
--- NOTE | 2018-08-05 15:44 | DISCHARGE SUMMARY ---
ADMISSION DATE: 08/03/2018 DISCHARGE DATE: 08/04/2018 DISPOSITION: Home. FOLLOWUP: Dr. Jamar Mills CONSULTATION DURING THIS ADMISSION: None. INVASIVE PROCEDURES DONE: None. IMAGING STUDIES OF SIGNIFICANCE: 1. A chest x-ray was negative. 2. A CT scan of the head showed no visible acute intracranial abnormality. 3. An MRA of the brain without contrast showed normal MR angiography of the brain. An MRI of the brain showed minimal microvascular ischemic changes but no recent infarct. 4. A repeat chest x-ray only showed chronic obstructive pulmonary disease. 5. An MRA of the neck showed normal MR angiography of the neck. ADMISSION DIAGNOSES: 1. Questionable urinary tract infection. 2. Altered mental status. 3. Transient ischemic attack. 4. Hypertension. 5. Tobacco abuse. DIAGNOSIS AT THE TIME OF DISCHARGE: 1. Acute confusional state, which has improved. This is presumed to be related to psychotropic medications. Neuro imaging including MRIs and MRAs were negative. 2. Chronic pain syndrome. 3. Polypharmacy with a risk of adverse reaction. The patient has been counseled. 4. Cognitive decline, questionable early Alzheimer's versus age-related cognitive impairment. 5. Clinical volume depletion resolved. 6. Dysuria with negative urine culture, improved. 7. Diarrhea likely due to antibiotic side effects. Clostridium difficile is negative. DISCHARGE MEDICATIONS: 1. Levothyroxine 100 mcg p.o. daily. 2. Cyclobenzaprine 10 mg b.i.d. 3. Alprazolam 0.5 p.o. at bedtime. 4. Aspirin 81 mg daily. 5. Ellipta. 6. Gurdon 10 mg q.4 p.r.n. 7. Cholecalciferol. 8. Lomotil 1 tablet q.6 p.r.n. 9. 300 mg daily. 10. Metoprolol 50 mg b.i.d. 11. Amlodipine 5 mg p.o. daily. 12. Phenergan 25 mg suppository 1 tab p.o. q. 4. PRESENTING COMPLAINT: Altered mental status. HISTORY OF PRESENTING COMPLAINT: Ms Doty is a 68-year-old female who presented to the emergency department because of about a day long of being confused and not knowing what she was doing and talking out of her head. Of note Ms. Doty has chronic pain and is on a lot of psychotropic medications. Upon presenting to the emergency department, her speech seems to have cleared up, but there was concern for TIA so Ms. Doty was admitted for a stroke workup. HOSPITAL COURSE: Ms. Doty was admitted to the medical floor under tele monitoring. Her neurological exams were completely normal all throughout the hospital course. Her speech was clear. The patient underwent MRA of the neck and brain and MRI of the brain, all those tests came back negative. This morning, Ms. Doty referred to be feeling a whole lot better. She did, however, have some diarrhea. Now on presentation she did make mention of some dysuric symptoms. Her urine was not particularly impressive, but she was started on IV antibiotics. We think the diarrhea is as a result of the IV antibiotics. C diff is negative. Patient dysuric symptoms have resolved. We have discontinue the IV antibiotics. Culture urine culture is also negative. This morning Ms. Doty referred to be feeling a whole lot better. blood pressure is 142/69, pulse is, respiration is 18, temperature 98.2 degrees. Patient is saturating 95%. We discussed extensively all the psychotropic medications that she is on that could have potentially caused her symptoms. I have also spoken with her son who is a is a staff member here in the hospital and we have discussed about the need for monitoring those psychotropic medications that the mom is on. All the discharge instructions have been discussed with both of them. Time spent for discharge is 37 minutes. cc: MD Jamar Goldman MD MTDD
== END 2018-08-04 17:40 | disposition home or self-care (01) ==
LOC: 3N 09:28 → ED 09:28 → 3N 17:42
PROVIDERS: ATTEND Internal Medicine
CPT/HCPCS: 70450; 70544; 70548; 70553; 71010; 71045; 80048; 80053; 80061; 80101; 80301; 80307; 80324; 80345; 80346; 80353; 80358; 80361; 80365; 81001; 82550; 82948; 83721; 83992; 84484; 85025; 85610; 85730; 87045; 87046; 87088; 87205; 87324; 89055; 93005; 93880; 94640; 94760; 94761; 96365; 99285; A9270; A9579; G0431; G0434; G0479; G0480; J0696; J1650; J2405; J7030; Q9967; XXXXX